=== PATIENT | male | born 1970 | race Caucasian/White ===

== ENCOUNTER 2021-09-04 17:07 | Emergency (ER) | payer OTHER ==
[~2021-09-04] VITALS: Ht 170.2 cm; Wt 113.4 kg
[2021-09-04] MEDS ORDERED: OMEPRAZOLE 20 M20 M1 PO (17:12)
[2021-09-04 19:06] VITALS: BP 134/65
== END 2021-09-04 19:06 | disposition home or self-care (01) ==
LOC: M.ERS 17:07
DX: S61.210A Laceration without foreign body of right index finger without damage to nail, initial encounter (principal); K21.9 Gastro-esophageal reflux disease without esophagitis; Z85.47 Personal history of malignant neoplasm of testis; Z79.899 Other long term (current) drug therapy; W26.0XXA Contact with knife, initial encounter; Y93.89 Activity, other specified; Y92.89 Other specified places as the place of occurrence of the external cause; Y99.8 Other external cause status